=== PATIENT | female | born 1960 | race Hispanic/Latino ===

== ENCOUNTER 2018-10-20 10:24 | Outpatient (CLI) | payer OTHER ==
[2018-10-20 11:12] LABS: Estimated GFR-MDRD - POC Greater than 90
[2018-10-20] MEDS ORDERED: ISOVUE-370 76%-LOCM 1 ML ONE (12:44)
--- NOTE | 2018-10-20 12:44 | CT ---
CT ABDOMEN AND PELVIS WITH IV CONTRAST: DATE: 10/20/2018. PROVIDED CLINICAL HISTORY: Left lower quadrant pain. FINDINGS: The visualized lung bases are suboptimally evaluated on the basis of patient respiratory motion. Sev eral noncalcified nodular densities are seen which are likely less than 6 mm in average axial dimensi on. There is a small hiatal hernia. The solid abdominal organs demonstrate no significant abnormality. There is incomplete rotation of t he left kidney and a small parenchymal calcification as well as parapelvic renal cysts. There is no bowel dilatation, inflammatory fat stranding, free fluid, or lymph node enlargement appar ent. The appendix appears normal. The osseous structures demonstrate no concerning lytic or blastic lesions. Occasional colonic divert icula are seen without CT evidence for diverticulitis. Scattered vascular calcifications are seen. IMPRESSION: No evidence for an acute process. POS: [facility]
== END 2018-10-20 10:25 | disposition home or self-care (01) ==
LOC: BICCT 10:24
PROVIDERS: ATTEND Internal Medicine Gastroenterology
DX: R10.32 Left lower quadrant pain (principal)
CPT/HCPCS: 74177; 82565; Q9966

== ENCOUNTER 2018-11-23 13:36 | Outpatient (CLI) | payer OTHER ==
[2018-11-23 14:29] LABS: Estimated GFR-MDRD - POC Greater than 90
--- NOTE | 2018-11-23 14:42 | CT ---
"PRELIMINARY REPORT" CONTRAST ENHANCED CT IMAGES CHEST: HISTORY: Lung nodule. FINDINGS: Contrast-enhanced CT images of the chest performed. Coronal reconstructed images performed. Images demonstrate a 5 mm left lower lobe lateral pleural-based nodule. No evidence of pleural or per icardial effusion seen. Additional right lung nodular density seen, one 5 mm lesion seen in the right middle lobe axial imag e #53 and additional 4 mm nodule is seen in the lateral aspect of the right middle lobe axial image #57 and a third right right lung lesion in the right lower lobe axial image #69. There is also a left upper lobe lesion also 4 to 5 mm in diameter axial image #51. There is a moderate size hiatal hernia also seen. IMPRESSION: Multiple subcentimeter lung parenchymal nodules. Repeat CT chest in 6 months to confirm stability is recommended. Transcribed Date/Time: 11/23/2018 2:45 PM
== END 2018-11-23 13:37 | disposition home or self-care (01) ==
LOC: BICCT 13:36
PROVIDERS: ATTEND Internal Medicine Gastroenterology
DX: R91.8 Other nonspecific abnormal finding of lung field (principal)
CPT/HCPCS: 71260; 82565

== ENCOUNTER 2019-02-01 13:12 | Outpatient (CLI) | payer OTHER ==
--- NOTE | 2019-02-08 14:10 | MMO ---
Bilateral MAMMO Bilat Screen [facility]. CLINICAL HISTORY: Patient is 58 years old and is seen for screening. The patient has no family history of breast cancer. The patient has no personal history of cancer. The patient has a history of right Excisional Biopsy - benign. VIEWS: The views performed were: bilateral craniocaudal with tomosynthesis and bilateral mediolateral oblique with tomosynthesis. FILMS COMPARED: The present examination has been compared to prior imaging studies performed at [facility] on 12/06/2013, 12/20/2014 and 02/07/2018, and at [facility] on 12/09/2016. MAMMOGRAM FINDINGS: The breasts are heterogeneously dense, which could obscure a lesion on mammography. There are no suspicious masses, suspicious calcifications, or new areas of architectural distortion. IMPRESSION: THERE IS NO MAMMOGRAPHIC EVIDENCE OF MALIGNANCY. A ROUTINE FOLLOW-UP MAMMOGRAM IN 1 YEAR IS RECOMMENDED. THE RESULTS OF THIS EXAM WERE SENT TO THE PATIENT. ACR BI-RADS Category 1 - Negative MAMMOGRAPHY NOTE: 1. A negative mammogram report should not delay a biopsy if a dominant of clinically suspicious mass is present. 2. Approximately 10% to 15% of breast cancers are not detected by mammography. 3. Adenosis and dense breasts may obscure an underlying neoplasm.
== END 2019-02-01 13:13 | disposition home or self-care (01) ==
LOC: BICMAMMO 13:12
PROVIDERS: ATTEND Family Medicine
DX: Z12.31 Encounter for screening mammogram for malignant neoplasm of breast (principal); Z91.89 Other specified personal risk factors, not elsewhere classified
CPT/HCPCS: 77063; 77067